=== PATIENT | female | born 1965 | race Caucasian/White ===

== ENCOUNTER 2022-04-24 08:23 | Outpatient (RCR) | payer MEDICARE, MEDICAID | END 2022-04-25 | LOC: ONC 08:23 | PROVIDERS: ATTEND Radiology Radiation Oncology | DX: Z51.0 Encounter for antineoplastic radiation therapy (principal); C79.31 Secondary malignant neoplasm of brain; C50.912 Malignant neoplasm of unspecified site of left female breast | CPT/HCPCS: 77300; 77301; 77334; 77338; 77370; 77373; 77470 ==

== ENCOUNTER 2022-05-01 09:44 | Outpatient (RCR) | payer MEDICARE, MEDICAID | END 2022-05-23 | disposition home or self-care (01) | LOC: ONC 09:44 | PROVIDERS: ATTEND Radiology Radiation Oncology | DX: Z51.0 Encounter for antineoplastic radiation therapy (principal); C79.31 Secondary malignant neoplasm of brain; C50.912 Malignant neoplasm of unspecified site of left female breast; I89.0 Lymphedema, not elsewhere classified; E11.9 Type 2 diabetes mellitus without complications; I10 Essential (primary) hypertension; M85.80 Other specified disorders of bone density and structure, unspecified site; M19.90 Unspecified osteoarthritis, unspecified site | CPT/HCPCS: 77373; G0463; 77336 ==